=== PATIENT | female | born 1995 | race Caucasian/White ===

== ENCOUNTER 2017-05-19 11:27 | Emergency (ER) | payer OTHER ==
[~2017-05-19] VITALS: Ht 157.5 cm; Wt 59.0 kg
[2017-05-19] MEDS ORDERED: IV NORMAL SALINE 1000ML BAG 1,000 ML IV ONE (12:15)
[2017-05-19 12:21] LABS: BILIRUBIN,URINE NEGATIVE (NEG); GLUCOSE,URINE NEGATIVE (NEG); NITRITE,URINE NEGATIVE (NEG); PH,URINE 7.5; PROTEIN,URINE NEGATIVE (NEG-TRACE); UROBILINOGEN,URINE 0.2 mg/dL (0.2 mg/dL)
[2017-05-19 12:23] LABS: NEG OBC UR NEG; POS OBC UR POS
[2017-05-19 12:30] LABS: POTASSIUM ISTAT 3.5 mmol/L (3.5-5.0)
[2017-05-19 12:31] LABS: RBC,URINE 0 /HPF (0-2)
[2017-05-19 12:31] LABS: BASO % 1 % (0-3); EOS % 1 % (0-3); HEMATOCRIT 41.3 % (36.0-47.0); HEMOGLOBIN 14.2 g/dL (12.0-15.5); LYMPH # 1.6 x10^3/uL (1.0-4.8); LYMPH % 26 % (24-48); MEAN CORPUSCULAR HEMOGLOBIN 32 pg (25-35); MEAN CORPUSCULAR HGB CONC 34 g/dL (31-37); MEAN CORPUSCULAR VOLUME 94 fL (79-100); MONO % 7 % (0-9); NEUT % 65 % (31-73); PLATELET COUNT 173 x10^3/uL (140-400); RED BLOOD COUNT 4.41 x10^6/uL (3.50-5.40); RED CELL DISTRIBUTION WIDTH 12.7 % (11.5-14.5); WHITE BLOOD COUNT 6.3 x10^3/uL (4.0-11.0)
[2017-05-19 12:32] LABS: BACTERIA,URINE FEW /HPF (0-FEW); SQUAMOUS EPITHELIAL CELL,UR MANY /LPF; WBC,URINE OCC /HPF (0-4)
--- NOTE | 2017-05-19 12:53 | PHYS DOC ---
Adult General Chief Complaint Chief Complaint: HEAT EXPOSURE HPI HPI Patient is a 21 year old female who presents with feeling shaky, dizzy, nausea and vomiting and one episode of diarrhea. Patient states she's been having these symptoms for some time, a [facility]sw[facility] in the [facility] as per the patient on a cardiac Holter monitor and patient is now traveling by an air-conditioned RV to [place] where she is moving. He conditions are in the mid 90s where she is located with humidity index greater than 100. Patient states she's had a decreased appetite with nausea and hasn't been drinking any fluids. She denies any pain associated with her symptoms. She is feeling better now that she's been in the air conditioning. Denies any history of blood clots in legs or lungs , no recent surgeries, no pain in her legs. PERC is 0 Review of Systems Review of Systems Constitutional: Denies fever or chills [] Eyes: Denies change in visual acuity, redness, or eye pain [] HENT: Denies nasal congestion or sore throat [] Respiratory: Denies cough or shortness of breath [] Cardiovascular: Denies chest pain GI: Denies abdominal pain : Denies dysuria or hematuria [] Musculoskeletal: Denies back pain or joint pain [] Integument: Denies rash or skin lesions [] Neurologic: Denies headache, focal weakness or sensory changes [] Current Medications Current Medications Current Medications Medications (Trade) Dose Ordered Sig/Aracelis Start Time Stop Time Status Last Admin Dose Admin Sodium Chloride 1,000 ml @ 1,000 mls/hr 1X ONCE 05/19/17 12:15 05/19/17 13:14 DC 05/19/17 12:29 1,000 MLS/HR Allergies Allergies Allergies Coded Allergies Type Severity Reaction Last Updated Verified Sulfa (Sulfonamide Antibiotics) Adverse Reaction Severe Shortness of Air Yes Physical Exam Physical Exam Constitutional: Well developed, well nourished, no acute distress, non-toxic appearance. [] HENT: Normocephalic, atraumatic, bilateral external ears normal, oropharynx slightly dry, no oral exudates, nose normal. [] Eyes: PERRLA, EOMI, conjunctiva normal, no discharge. [] Neck: Normal range of motion, no tenderness, supple, no stridor. [] Cardiovascular:Heart rate regular with regular rhythm, no murmur [] Lungs & Thorax: Bilateral breath sounds clear to auscultation, no wheeze Abdomen: Bowel sounds normal, soft, no tenderness, no masses, no pulsatile masses. [] Skin: Warm, dry, no erythema, no rash. [] Back: No tenderness, no CVA tenderness. [] Extremities: No tenderness, no cyanosis, no clubbing, ROM intact, no edema. [] Neurologic: Alert and oriented X 3, normal motor function, normal sensory function, no focal deficits noted. CN II-XII intact, normal gait Psychologic: Affect normal, judgement normal, mood normal. [] Current Patient Data Vital Signs Vital Signs Date Time Temp Pulse Resp B/P (MAP) Pulse Ox O2 Delivery O2 Flow Rate FiO2 05/19/17 13:05 80 32 122/65 (84) 99 Room Air 05/19/17 12:20 98.7 98.7 Lab Values Laboratory Tests Test 05/19/17 11:16 05/19/17 12:01 05/19/17 12:20 05/19/17 12:25 POC Urine HCG, Qualitative Hcg negative (Negative) Urine Collection Type Void Urine Color Yellow Urine Clarity Clear Urine pH 7.5 Urine Specific [employer] <=1.005 Urine Protein Negative mg/dL (NEG-TRACE) Urine Glucose (UA) Negative mg/dL (NEG) Urine Ketones (Stick) Negative mg/dL (NEG) Urine Blood Negative (NEG) Urine Nitrite Negative (NEG) Urine Bilirubin Negative (NEG) Urine Urobilinogen Dipstick 0.2 mg/dL (0.2 mg/dL) Urine Leukocyte Esterase Negative (NEG) Urine RBC 0 /HPF (0-2) Urine WBC Occ /HPF (0-4) Urine Squamous Epithelial Cells Many /LPF Urine Bacteria Few /HPF (0-FEW) Urine Test Negative (NEG) White Blood Count 6.3 x10^3/uL (4.0-11.0) Red Blood Count 4.41 x10^6/uL (3.50-5.40) Hemoglobin 14.2 g/dL (12.0-15.5) Hematocrit 41.3 % (36.0-47.0) Mean Corpuscular Volume 94 fL (79-100) Mean Corpuscular Hemoglobin 32 pg (25-35) Mean Corpuscular Hemoglobin Concent 34 g/dL (31-37) Red Cell Distribution Width 12.7 % (11.5-14.5) Platelet Count 173 x10^3/uL (140-400) Neutrophils (%) (Auto) 65 % (31-73) Lymphocytes (%) (Auto) 26 % (24-48) Monocytes (%) (Auto) 7 % (0-9) Eosinophils (%) (Auto) 1 % (0-3) Basophils (%) (Auto) 1 % (0-3) Neutrophils # (Auto) 4.1 x10^3uL (1.8-7.7) Lymphocytes # (Auto) 1.6 x10^3/uL (1.0-4.8) Monocytes # (Auto) 0.4 x10^3/uL (0.0-1.1) Eosinophils # (Auto) 0.1 x10^3/uL (0.0-0.7) Basophils # (Auto) 0.0 x10^3/uL (0.0-0.2) POC Hemoglobin 13.9 g/dL (12-15) POC Hematocrit 41 % (36-40) H POC Sodium 142 mmol/L (135-145) POC Potassium 3.5 mmol/L (3.5-5.0) POC Chloride 104 mmol/L (98-110) POC Total CO2 25 mmol/L (23-32) Anion Gap 18 mmol/L (6-14) H POC Blood Urea Nitrogen 3 mg/dL (8-26) L POC Creatinine 0.6 mg/dL (0.5-1.4) Glucose Level 114 mg/dL (70-99) H POC Ionized Calcium (Dennis) 1.22 mmol/L (1.13-1.32) Laboratory Tests 05/19/17 12:20 Laboratory Tests 05/19/17 12:25 EKG EKG 71 bpm, sinus, normal axis, no ST elevation or depression, nonischemic T wave, interpreted by me.[] Radiology/Procedures Radiology/Procedures [] Course & Med Decision Making Course & Med Decision Making Pertinent Labs and Imaging studies reviewed. (See chart for details) Patient was given 1 L of IV fluids, IV Zofran ordered. Labs unremarkable, urine and test negative. EKG did not show any significant abnormalities and exam is reassuring. I counseled patient that I would go to a hotel room where she did have air conditioning for the next 24 hours and drink plenty of fluids. We'll discharge with Zofran ODT. Caleb Disclaimer Caleb Disclaimer This electronic medical record was generated, in whole or in part, using a voice recognition dictation system. Departure Departure Impression: Primary Impression: Nausea and vomiting Disposition: HOME, SELF-CARE Condition: STABLE Referrals: NO PCP (PCP) Patient Instructions: Dizziness, Nausea and Vomiting Scripts Ondansetron (ZOFRAN ODT) 4 Mg Tab.rapdis 1 TAB SL Q8HRS, #10 TAB Prov: CHRISTEL GATES MD 05/19/17 CHRISTEL GATES MD May 19, 2017 12:53
[2017-05-19 13:05] VITALS: BP 122/65
[2017-05-19] MEDS ORDERED: ONDA4TAB10 SL (13:10)
--- NOTE | 2017-05-19 13:16 | EKG ---
[facility] [address] [place] [address] Test Date: 2017-05-19 Test Time: 12:33:14 Pat Name: LISSETTE KIRBY Department: Room: Gender: F Referral Management Liaison: : 1995 Requested By: CHRISTEL GATES Order Number: [id number] Reading MD: Schuyler Rojo Measurements Intervals [place] Rate: 71 P: 36 NV: 118 QRS: 60 QRSD: 64 T: 41 QT: 390 QTc: 429 Interpretive Statements SINUS RHYTHM Electronically Signed On 05-29-2017 14:42:19 CDT by Schuyler Rojo
== END 2017-05-19 13:35 | disposition home or self-care (01) ==
LOC: ER 11:27
DX: R11.2 Nausea with vomiting, unspecified (principal); R42 Dizziness and giddiness; R19.7 Diarrhea, unspecified; Z88.2 Allergy status to sulfonamides
CPT/HCPCS: 36415; 80047; 81001; 81025; 84703; 85027; 93005; 96360; 99285; C1887; J7030